=== PATIENT | female | born 2000 | race African-American/Black ===

== ENCOUNTER 2021-04-12 13:31 | Emergency (ER) | payer MEDICAID ==
[~2021-04-12] VITALS: Ht 154.9 cm; Wt 44.0 kg
[2021-04-12] MEDS ORDERED: TETANUS, DIPHTHERIA, PERTUSSIS VAC/PF 0.5ML (>10YR OLD) IM ONE (15:00)
[2021-04-12] MEDS ORDERED: LIDOCAINE HCL/PF 1% 10 MG/ML 5ML VIAL INFIL ONE (15:00)
[2021-04-12] MEDS ORDERED: ACETAMINOPHEN 325MG TABLET PO ONE (15:00)
[2021-04-12] MEDS ORDERED: BACITRACIN ZINC OINT UDPKT TOP ONE (15:00)
[2021-04-12] MEDS ORDERED: BO1 TP (15:33)
[2021-04-12 15:55] VITALS: BP 114/75
== END 2021-04-12 15:56 | disposition home or self-care (01) ==
LOC: ER 13:31
DX: S01.81XA Laceration without foreign body of other part of head, initial encounter (principal); J45.909 Unspecified asthma, uncomplicated; W18.09XA Striking against other object with subsequent fall, initial encounter; Y93.01 Activity, walking, marching and hiking; Y92.89 Other specified places as the place of occurrence of the external cause; Y99.8 Other external cause status
CPT/HCPCS: 12011; 90471; 90715; 99283; J3490

== ENCOUNTER 2021-04-17 10:51 | Emergency (ER) | payer MEDICAID ==
[~2021-04-17] VITALS: Ht 157.5 cm; Wt 45.0 kg
[~2021-04-17 10:51] MED LIST: BO1 TP
[2021-04-17 11:08] VITALS: BP 115/75
== END 2021-04-17 11:56 | disposition home or self-care (01) ==
LOC: ER 11:23
DX: Z48.02 Encounter for removal of sutures (principal); J45.909 Unspecified asthma, uncomplicated
CPT/HCPCS: 99281